=== PATIENT | female | born 1965 | race Caucasian/White ===

== ENCOUNTER 2016-09-22 10:43 | Outpatient (CLI) | payer OTHER ==
[~2016-09-22 10:43] MED LIST: ASPIRIN EC81 MG PO; FIBER PO; HYCET1 ML PO; METHOCARBAMOL500 MG PO; PAXIL CR12.5 MG PO; PEPCID AC10 MG PO; PROBIOTIC PO; VENTOLIN HFA IN; [UNRECOGNIZED DRUG - OTHER] PO
--- NOTE | 2016-09-22 12:17 | DIAGNOSTIC IMAGING REPORT ---
PROCEDURE: XR CERVICAL SPINE 4 OR 5 VIEW INDICATION: R SHOULDER PAIN, GRIEF REACTION, CHRONIC ANXIETY TECHNIQUE: Five views. COMPARISON: None. FINDINGS: Normal alignment without fracture. Mild reversal of the normal lordosis suggestive of muscular spasm. Severe C6-7 degenerative changes with mild bilateral foraminal narrowing. Odontoid, lateral masses of C1 and prevertebral soft tissues are normal. IMPRESSION: 1. Severe C6-7 degenerative changes with mild bilateral foraminal stenosis
== END 2016-09-22 23:00 ==
LOC: XR SRH 10:43
DX: M47.812 Spondylosis without myelopathy or radiculopathy, cervical region (principal)

== ENCOUNTER 2016-10-11 10:53 | Outpatient (CLI) | payer OTHER ==
--- NOTE | 2016-10-11 13:17 | DIAGNOSTIC IMAGING REPORT ---
PROCEDURE: MR CERVICAL SPINE W/O CONT INDICATION: CHRONIC NECK PAIN TECHNIQUE: Noncontrast T1, T2, and STIR sagittal images. T2 and gradient axial images. COMPARISON: Cervical spine x-ray 09/22/2016 and MRI cervical spine 10/16/2014 FINDINGS: Normal alignment without fracture or suspicious osseous lesion. Degenerative changes with endplate bone marrow edema. Normal craniocervical junction and cervical cord. Paraspinal soft tissues are unremarkable. C2-3: Normal appearance. C3-4: Small left foraminal disc bulge/spur complex with mild facet arthropathy resulting in mild left foraminal stenosis. C4-5: Small central disc bulge but no spinal or foraminal stenosis. C5-6: Small left posterior disc bulge and left facet arthropathy but no foraminal or spinal stenosis. C6-7: Moderate broad-based disc bulge/spur complex and facet arthropathy. There is new mild left foraminal stenosis. No spinal stenosis. C7-T1: Mild left foraminal disc bulge with mild left foraminal stenosis, unchanged. No spinal stenosis. No change. IMPRESSION: 1. Mild to moderate degenerative changes, most prominent at C6-7, with multilevel disc bulging 2. C3-4 small left foraminal disc bulge with mild left foraminal stenosis 3. C6-7 moderate disc bulge with new mild left foraminal stenosis 4. C7-T1 mild left foraminal disc bulge with mild left foraminal stenosis, unchanged
== END 2016-10-11 23:00 ==
LOC: MRI SRH 10:53
DX: M54.2 Cervicalgia (principal); M50.323 Other cervical disc degeneration at C6-C7 level; M48.02 Spinal stenosis, cervical region; M51.24 Other intervertebral disc displacement, thoracic region; M48.03 Spinal stenosis, cervicothoracic region

== ENCOUNTER 2016-12-19 12:18 | Outpatient (CLI) | payer OTHER ==
--- NOTE | 2016-12-19 13:11 | DIAGNOSTIC IMAGING REPORT ---
PROCEDURE: XR CERVICAL SPINE 2 OR 3 VIEW INDICATION: STENOSIS--UPRIGHT NEUTRAL,FLEX,EXT CENTERED C3-4 TECHNIQUE: Three views. Flexion and extension COMPARISON: Cervical MRI dated 10/11/2016 FINDINGS: Spondylosis C6-7. No abnormal motion. No evidence of an acute process or fracture. IMPRESSION: 1. C6-7 spondylosis.
--- NOTE | 2016-12-19 13:39 | DIAGNOSTIC IMAGING REPORT ---
PROCEDURE: CT CERVICAL SPINE W/O CONTRAST INDICATION: CERVICAL STENOSIS OF SPINE TECHNIQUE: Noncontrast axial images with sagittal and coronal reformations. COMPARISON: Cervical MRI dated 10/11/2016 FINDINGS: C2-3: Normal appearance. C3-4: mild facet arthropathy resulting in mild left foraminal stenosis. C4-5: no spinal or foraminal stenosis. C5-6: left facet arthropathy but no foraminal or spinal stenosis. C6-7: There is new mild left foraminal stenosis. No spinal stenosis. C7-T1: no spinal or foraminal stenosis. IMPRESSION: 1. Mild degenerative changes, most prominent at C6-7,
== END 2016-12-19 23:00 ==
LOC: CT SRH 12:18
DX: M48.02 Spinal stenosis, cervical region (principal); M47.812 Spondylosis without myelopathy or radiculopathy, cervical region